=== PATIENT | female | born 1985 | race Hispanic/Latino ===

== ENCOUNTER 2024-08-07 15:08 | Emergency (ER) | payer BC ==
[2024-08-07] MEDS ORDERED: predniSONE 20 MG TAB ONE (15:40)
== END 2024-08-07 15:46 | disposition home or self-care (01) ==
LOC: BURERS 15:08
DX: T63.421A Toxic effect of venom of ants, accidental (unintentional), initial encounter (principal); L50.0 Allergic urticaria
CPT/HCPCS: 99282; J7512